=== PATIENT | male | born 1955 | race Caucasian/White ===

== ENCOUNTER 2023-03-23 16:57 | Outpatient (REF) | payer MEDICARE, SELFPAY ==
[2023-03-23 17:41] LABS: SARS-CoV-2 Ag POSITIVE (NEGATIVE)
== END 2023-03-23 16:58 | disposition home or self-care (01) ==
LOC: LAB 16:57
PROVIDERS: PCP Nurse Practitioner Family; Visit Provider Nurse Practitioner Family
DX: Z20.822 Contact with and (suspected) exposure to COVID-19 (principal)
CPT/HCPCS: 87811